=== PATIENT | female | born 2000 | race Caucasian/White ===

== ENCOUNTER 2020-10-29 14:56 | Outpatient (REF) | payer OTHER, SELFPAY | END 2020-10-29 14:57 | disposition home or self-care (01) | LOC: HO.LAB 14:56 | PROVIDERS: PCP Internal Medicine; Visit Provider Internal Medicine | DX: Z20.822 Contact with and (suspected) exposure to COVID-19 (principal) | CPT/HCPCS: C9803; U0003; U0005 ==

== ENCOUNTER 2021-02-11 09:50 | Outpatient (REF) | payer OTHER, SELFPAY ==
[2021-02-11 10:18] LABS: COVID-19 Test Negative (Negative)
== END 2021-02-11 09:51 | disposition home or self-care (01) ==
LOC: HO.LAB 09:50
PROVIDERS: PCP Internal Medicine; Visit Provider Internal Medicine
DX: Z20.822 Contact with and (suspected) exposure to COVID-19 (principal)
CPT/HCPCS: 36415; 87635; C9803

== ENCOUNTER 2023-01-11 08:27 | Emergency (ER) | payer SELFPAY ==
--- NOTE | ~2023-01-11 | US_ITS ---
EXAMINATION: US VENOUS ULTRASOUND WITH DOPPLER LOWER EXTREMITY, LEFT CLINICAL INFORMATION: Red/warm left lower extremity COMPARISON: None available. TECHNIQUE: Ultrasound of the deep veins is performed from the hip to the calf with compression sonography and color and pulse Doppler assessment. Spectral analysis with color-flow imaging is performed. FINDINGS: There is normal venous compression and respiratory variation and augmented flow. The visualized common femoral vein, superficial femoral vein, profunda femoral vein, popliteal vein, and the trifurcation region shows no evidence of deep venous thrombosis. There is no significant popliteal fossa cyst. Contralateral common femoral vein is patent. If the patient's symptoms persist, followup ultrasound in 5 days 7 days might be of value to exclude proximal propagation from a non-visualized calf vein. US/US venous duplex LE IMPRESSION: No DVT demonstrated in the left lower extremity.
[2023-01-11 08:30] VITALS: BP 132/87; PULSE 110; RESP 18; TEMP 36.7; O2SAT 98; BMI 31.5
--- NOTE | 2023-01-11 08:34 | ED.GENADULT ---
HPI - General Adult General Chief complaint: General Medical Stated complaint: L leg pain Time Seen by Provider: 01/11/23 08:32 Source: patient Mode of arrival: ambulatory Limitations: no limitations History of Present Illness HPI narrative: 22-year-old female with no significant pmhx presents to the ED today with a complaint of a warm sensation to her left lower extremity that extends from her groin to her left lower leg x2 days. States that it this woke her from her sleep 2 days ago. Her legs felt warm to the touch. Since this time this sensation has been intermittent and will occasionally feel like an internal sensation. She has asked her coworkers to feel her leg and they have not been able to appreciate any warmth. Additionally she endorses intermittent numbness to her left foot x2 days. Ambulating without difficulty. Denies pain/redness to the lower extremity. Denies injury or trauma. Has been on Depakote for 10 years now. No recent long distance travel. Denies fever, chills, headache, dizziness, neck pain, chest pain, shortness of breath, dyspnea, LE pain/swelling, tingling or weakness to the lower extremities, bowel or bladder retention or incontinence, saddle anesthesia. No history of diabetes or neuropathy. She is currently on antibiotics for strep throat x1 week. Denies throat pain Related Data Previous Rx's Medication Instructions Recorded gabapentin 300 mg capsule 300 mg PO BID 3 weeks #42 caps 01/11/23 Allergies Allergy/AdvReac Type Severity Reaction Status Date / Time No Known Allergies Allergy Verified 01/11/23 08:33 Review of Systems Review of Systems: Constitutional: No fever, chills, fatigue, night sweats, weight changes ENT/Mouth: No ear pain, hearing loss, nasal congestion, sinus pain, rhinorrhea, sore throat Eyes: No eye pain, swelling, redness, vision changes, discharge Cardio: No chest pain, palpitations, HUFF, orthopnea, peripheral edema Pulm: No SOB, cough, sputum, wheezing, dyspnea, hemoptysis GI: No nausea, vomiting, hematemesis, abdominal pain, diarrhea, constipation, hematochezia, melena : No irregular bleeding, dysuria, frequency, urgency, hesitancy, hematuria, flank pain, urinary flow changes, urinary incontinence or retention MSK: No back pain, neck pain, joint pain, myalgias Skin: No lesions, rashes Neuro: No weakness, + numbness to left foot, No paresthesias, LOC, dizziness, headache All other systems reviewed and are negative. [facility] [place] Past Medical History Attestation statement: The following information was validated with the patient. Source: old records reviewed and nursing notes reviewed Social History Social History Advance Directives: No Physical Exam ED Vital Signs: Vital Signs - 24 hr 01/11/23 08:30 01/11/23 08:48 01/11/23 10:38 Temperature 98.0 F 98.6 F 98.2 F Pulse Rate 110 H 105 H 81 Respiratory Rate 18 20 20 Blood Pressure 132/87 130/80 118/66 Pulse Oximetry 98 97 96 Oxygen Delivery Method Room Air Room Air Room Air BMI result Body Mass Index 31.5 Vital signs notable for tachycardia Const General: cooperative, comfortable, no acute distress, alert and awake Orientation/consciousness: patient oriented x3 Limitations: no limitations HENMT Other: + posterior oropharynx without erythema or tonsillar exudates. Uvula is midline. Patient is controlling secretions and speaking in complete sentences. Head: Yes normal to inspection Ears: hearing grossly normal bilaterally General nose exam: Normal external nose present Eyes General: appearance normal, both eyes and all related structures Conjunctivae: conjunctivae normal Sclerae: sclerae normal Pupils: Equal, round and reactive pupils present EOM: EOMs intact bilaterally Neck Neck: Yes normal visual inspection, Yes no lymphadenopathy and Yes no meningeal signs Thyroid: Thyroid normal Resp Effort & Inspection: normal respiratory effort and able to speak in complete sentences Auscultation: clear to auscultation bilaterally Cardio Rate: regular rate Rhythm: regular rhythm Peripheral pulses: radial pulses present, posterior tibial pulses present and dorsalis pedis present Back/Spine/Pelvis Other: + no midline spinous tenderness. No paraspinal muscle tenderness to palpation. No step-off deformity. Skin General skin exam: no rashes or lesions noted Neuro Other: Strength 5/5 intact throughout.?No saddle anesthesia.?Sensation intact to light touch.?NV intact distally.? General: patient oriented x3, gait normal, moves all extremities and no meningeal signs Cranial nerves: Yes CN's II-XII intact bilaterally and Yes Equal, round and reactive pupils present Extrem Other: + The left lower extremity is without erythema or edema, not tender to palpation, ROM intact, strength 5/5, sensation is intact to light touch, Negative Homans sign bilaterally. General: Yes normal to inspection, Yes full ROM and Yes no clubbing, cyanosis or edema Course Course Course Narrative: 0950-- CBC without leukocytosis or anemia, no thrombocytosis or thrombocytopenia. Random glucose is within normal limits > unlikely diabetic induced neuropathy. Beta hCG negative. COVID negative. D-dimer is negative. Coagulation is within normal limits. Venous Doppler of left lower extremity does not demonstrate DVT > VTE is unlikely. TSH wnl. Discussed workup results with patient and family member. There is no clear etiology to patient's symptoms. I will send her home with a trial for gabapentin for possible neuropathy. I will provide her with neurology referral for further work up. Discussed return precautions. All questions answered at this time. Patient agreeable with disposition and stable for discharge. Medical Decision Making Medical Decision Making [facility] Narrative: 22-year-old female with no significant past medical history presents to the ED today with a complaint of a warm sensation to her left lower extremity that extends from her groin to her left lower leg x2 days. VS initially notable for tachycardia, now normalized. Patient non toxic appearing, in NAD. No rashes. The left lower extremity is without erythema or edema, not tender to palpation, ROM intact, strength 5/5, sensation, intact to light touch, Negative Homans sign bilaterally. Exam nonfocal. Clinical concern for DVT, neuropathy, neuralgia, electrolyte abnormality, vitamin deficiency, hyperthyroid. Unlikely compartment syndrome, fracture/dislocation, arterial occlusion. Unlikely CVA/TIA. Plan at this time is basic labs, coags, d dimer, LLE venous duplex, and re-eval. Differential Diagnosis Differential Diagnoses: The differential diagnosis associated with the presentation includes As above. Admission/Observation Not indicated. Lab Data [facility] Lab Attestation statement: I reviewed the patient's lab results. As above. 01/11/23 08:55 01/11/23 08:55 Labs: Lab Results 01/11/23 Range/Units 08:55 WBC 7.1 (4.8-10.8) X10*3/uL RBC 4.93 (4.20-5.50) X10*6/uL Hgb 14.2 (12.0-16.0) g/dl Hct 42.8 (37.0-47.0) % MCV 86.8 (80.0-98.0) fL MCH 28.8 (27.0-33.0) pg MCHC 33.2 (31.0-35.0) g/dl RDW 11.9 (11.0-16.0) % Plt Count 354 (160-400) X10*3/uL MPV 9.3 L (9.4-12.3) fL Immature Gran % (Auto) 0.8 H (0.0-0.4) % Neut % (Auto) 51.5 (45-73) % Lymph % (Auto) 38.1 (20-40) % Otero % (Auto) 6.5 (2-11) % Eos % (Auto) 2.3 (0-4) % Baso % (Auto) 0.8 (0-2) % Lymph # (Auto) 2.7 (1.2-4.9) X10*3/uL Otero # (Auto) 0.5 (0.1-1.2) X10*3/uL Eos # (Auto) 0.2 (0.0-0.4) X10*3/uL Baso # (Auto) 0.1 (0.0-0.2) X10*3/uL Abs Immat Gran (auto) 0.06 H (0.00-0.03) X10*3/uL Absolute Neuts (auto) 3.6 (2.0-8.3) x10*3/uL Absolute Nucleated RBC 0.000 (0.0-0.012) X10*3/uL Nucleated RBC % (auto) 0.0 (0.0-0.2) /100WBC PT 11.8 (11.1-13.3) SEC INR 1.0 (0.9-1.1) D-Dimer High Sensitivty < 150 NG/ML Sodium 141 (135-145) mmol/L Potassium 4.1 (3.3-5.1) mmol/L Chloride 109 H (96-108) mmol/L Carbon Dioxide 23 (22-29) mmol/L Anion Gap 13 (12-20) BUN 9 (9-16) mg/dL Creatinine 0.81 (0.5-1.4) mg/dL Estim Creat Clear Calc 119.9 Estimated GFR > 60 Random Glucose 108 (60-115) mg/dL Calcium 10.3 H (8.4-10.2) mg/dL Magnesium 2.0 (1.6-2.6) mg/dL Total Bilirubin 0.3 (0.0-1.0) mg/dL AST 18 (5-31) U/L ALT 19 (0-31) U/L Alkaline Phosphatase 69 (39-117) U/L Total Protein 7.8 (6.5-8.0) g/dL Albumin 4.7 (3.5-5.0) g/dL Lipase 17 (8-78) U/L TSH 1.12 (0.32-4.0) uIU/mL Beta HCG, Quant < 2 mIU/mL COVID-19 ([facility]) Negative (Negative) COVID-19 Clin Com See Note Independent Interpretation I performed an independent interpretation of an: Ultrasound Interpretation: Ultrasound of left lower extremity without DVT, agree with radiologist's interpretation. Radiology Impression Discussion of test interpretation with radiology: I have reviewed the radiologist's reading. Radiologist Impression: US venous duplex LE LT IMPRESSION: No DVT demonstrated in the left lower extremity. External Record Review External record reviewed: Inpatient record Critical Care Time Critical Care Time Critical Care Time: No Discharge Plan Discharge Clinical Impression: Neuropathy Patient Disposition: Home, Self-Care Instructions: Peripheral Neuropathy (ED) Additional Instructions: Your labs today were reassuring. The ultrasound of your left leg did not demonstrate any clot. Your symptoms may be consistent with a neuropathy. You have been provided with a referral to a neurologist. Please call them to follow-up. They will not call you. Gabapentin is a medication that can help with nerve pain. A three-week course of this has been sent to your pharmacy. You will take this twice daily. Follow-up with your primary care physician as needed. If her symptoms persist or worsen, please return to the emergency department. In the case of an emergency call 911. Prescriptions: New gabapentin 300 mg capsule 300 mg PO BID 21 Days Qty: 42 0RF Referrals: [facility] [place] Neuro/Sleep [Provider Group] - 5 days Rachel Hidalgo MD [Primary Care Provider] - Stand Alone Forms: Work/School Release Interventions: ED Discharge Assessment Last Done: 01/11/23 10:59 Discharge Date/Time: 01/11/23 11:00
--- OUTSIDE RECORDS SUMMARY | 2023-01-11 08:47 | XMS_ITS | Continuity of Care Document ---
Author Name Unknown Organization [facility] e Medicine Address Unknown Care Team Providers Care Peoplesoft Developer Name Role Phone Barak Godoy NP Primary Care Physician [place] [facility] [place] [facility] Reproductive Medicine Attending Physician: Hank Marrero Admitting Physician: Hank Marrero Referring Physician: Admtr, Hank Allergies, Adverse Reactions, Alerts No Known Medication Allergies Immunizations Given and Recorded Vaccine Date Status Refusal Reason Poliovirus Vaccine, Inactivated 1 06/04/18 Recorde d Poliovirus Vaccine, Inactivated 05/28/02 Recorded Poliovirus Vaccine, Inactivated 11/12/99 Recorded Human Papillomavirus Vaccine 05/13/15 Recorded Human Papillomavirus Vaccine 2 08/15/14 Recorded Human Papillomavirus Vaccine 3 07/15/14 Recorded tetanus-diphtheria toxoids (Td) 05/13/15 Recorded tetanus-diphtheria toxoids (Td) 4 06/21/10 Recorde d Meningococcal Conjugate Vaccine 5 08/15/14 Recorde d Meningococcal Conjugate Vaccine 6 06/21/10 Recorde d Hepatitis A Pediatric Vaccine 7 07/15/14 Recorded Hepatitis A Pediatric Vaccine 8 12/16/11 Recorded Varicella Virus Vaccine 9 09/03/08 Recorded Varicella Virus Vaccine 10 04/19/99 Recorded diphtheria/tetanus/pertussis, acel(DTaP) 11 05/28/02 Recorded diphtheria/tetanus/pertussis, acel(DTaP) 11/12/99 Recorded diphtheria/tetanus/pertussis, acel(DTaP) 98 Recorded Measles/Mumps/Rubella Virus Vaccine 12 05/28/02 Re corded Measles/Mumps/Rubella Virus Vaccine 13 07/16/99 Re corded Haemophilus B conjugate (HbOC) vaccine 14 07/16/99 Recorded Haemophilus B conjugate (HbOC) vaccine 15 98 Recorded Haemophilus B conjugate (HbOC) vaccine 16 98 Recorded Haemophilus B conjugate (HbOC) vaccine 17 98 Recorded hepatitis B pediatric vaccine 18 01/11/99 Recorded hepatitis B pediatric vaccine 19 98 Recorded hepatitis B pediatric vaccine 20 98 Recorded 1Location History: Pediatric Immunization Record 2Location History: Pediatric Immunization Record 3Location History: Pediatric Immunization Record 4Location History: Pediatric Immunization Record 5Location History: Pediatric Immunization Record 6Location History: Pediatric Immunization Record 7Location History: Pediatric Immunization Record 8Location History: Pediatric Immunization Record 9Location History: Pediatric Immunization Record 10Location History: Pediatric Immunization Record 11Location History: Pediatric Immunization Record 12Location History: Pediatric Immunization Record 13Location History: Pediatric Immunization Record 14Location History: Pediatric Immunization Record 15Location History: Pediatric Immunization Record 16Location History: Pediatric Immunization Record 17Location History: Pediatric Immunization Record 18Location History: Pediatric Immunization Record 19Location History: Pediatric Immunization Record 20Location History: Pediatric Immunization Record Medications Depo-Provera Contraceptive 150 mg/mL intramuscular suspension 1 mL = 150 mg, Intramuscular, Every 3 months, # 1 mL, 0 Refills, Maintenance, 04/17/18 9:02:37 EST,Suspension Start Date: 04/17/18 Status: Ordered Social History Social History Type Response Smoking Status Never (less than 100 in lifetime) entered on: 04/17/18 Sex
[2023-01-11 08:48] VITALS: BP 130/80; PULSE 105; RESP 20; TEMP 37; O2SAT 97
--- OUTSIDE RECORDS SUMMARY | 2023-01-11 08:48 | XMS_ITS | Continuity of Care Document ---
Author Name Unknown Organization [facility] e Medicine Address Unknown Care Team Providers Care Compression Molding Machine Tender Name Role Phone Walt MEI, Barak Leal Primary Care Physician [phone] [place] [facility] [place]/21 [facility] Reproductive Medicine Attending Physician: Luna Calhoun MD Referring Physician: Daya Stein MD Allergies, Adverse Reactions, Alerts No Known Medication [...] 9:02:37 EST,Suspension Start Date: 04/17/18 Status: Ordered Vital Signs Most recent to oldest [Reference Range]: 1 Height 168 cm (05/07/21 8:42 AM) Social History Social History Type Response Smoking Status Never (less than 100 in lifetime) entered on: 04/17/18 Sex
--- OUTSIDE RECORDS SUMMARY | 2023-01-11 08:48 | XMS_ITS | Continuity of Care Document ---
Author Name Unknown Organization [facility] e Medicine Address Unknown Care Team Providers Care Activities Therapist Name Role Phone Barak Godoy NP Primary Care Physician En[place] [facility] [place] Date(s): 05/31/21 - 06/30/21 [facility] Reproductive Medicine Attending Physician: Hank Marrero Admitting Physician: Hank Marrero Referring Physician: AdmtrHank Allergies, Adverse Reactions, Alerts No Known Medication [...]
--- OUTSIDE RECORDS SUMMARY | 2023-01-11 08:48 | XMS_ITS | Continuity of Care Document ---
Author Name Unknown Organization [facility] Medicine Address Unknown Care Team Providers Care Exceptional Children'S Teacher Name Role Phone Barak Godoy NP Primary Care Physician Encounter [facility] [place] Date(s): 05/17/21 - 06/30/21 [facility] Rep[facility]ductive [facility] Attending Physician: Not on Staff, Attending MD Referring Physician: Luna Calhoun MD Allergies, Adverse Reactions, Alerts No Known [...] Recorded Haemophilus B conjugate (HbOC) vaccine 15 8/2/99 Recorded Haemophilus B conjugate (HbOC) vaccine 16 [...]
--- OUTSIDE RECORDS SUMMARY | 2023-01-11 08:48 | XMS_ITS | Continuity of Care Document ---
Author Name Unknown Organization [facility] e Medicine Address Unknown Care Team Providers Care Digital Forensic Examiner Name Role Phone Barak Godoy NP Primary Care Physician [place] [facility] [place] 07[place]23/21 [facility] Reproductive Medicine Attending Physician: Luna Calhoun MD Referring Physician: Not on Staff, Referring MD Allergies, Adverse Reactions, Alerts No Known [...]
[2023-01-11 09:06] LABS: MANUAL DIFF FLAG NO
[2023-01-11 09:08] LABS: Basophils Absolute Auto 0.1 X10*3/uL (0.0-0.2); Basophils Percent Auto 0.8 % (0-2); Eosinophils Absolute Auto 0.2 X10*3/uL (0.0-0.4); Eosinophils Percent Auto 2.3 % (0-4); Hematocrit 42.8 % (37.0-47.0); Hemoglobin 14.2 g/dl (12.0-16.0); Imm Gran Abs Auto 0.06 X10*3/uL (0.00-0.03); Imm Gran Pct Auto 0.8 % (0.0-0.4); Lymphocytes Absolute Auto 2.7 X10*3/uL (1.2-4.9); Lymphocytes Percent Auto 38.1 % (20-40); Mean Corpuscular HGB Conc 33.2 g/dl (31.0-35.0); Mean Corpuscular Hemoglobin 28.8 pg (27.0-33.0); Mean Corpuscular Volume 86.8 fL (80.0-98.0); Mean Platelet Volume 9.3 fL (9.4-12.3); Monocytes Absolute Auto 0.5 X10*3/uL (0.1-1.2); Monocytes Percent Auto 6.5 % (2-11); Neutrophils Absolute Auto 3.6 x10*3/uL (2.0-8.3); Neutrophils Percent Auto 51.5 % (45-73); Platelet Count 354 X10*3/uL (160-400); Red Blood Count 4.93 X10*6/uL (4.20-5.50); Red Cell Distribution Width 11.9 % (11.0-16.0); White Blood Count 7.1 X10*3/uL (4.8-10.8)
[2023-01-11 09:15] LABS: Prothrombin Time 11.8 SEC (11.1-13.3)
[2023-01-11 09:20] LABS: D Dimer High Sensitivity < 150 NG/ML
[2023-01-11 09:22] LABS: COVID-19 Test Negative (Negative); IDNOW Serial# BCCEAD1C
[2023-01-11 09:31] LABS: Alanine Aminotransferase 19 U/L (0-31); Albumin Level 4.7 g/dL (3.5-5.0); Alkaline Phosphatase 69 U/L (39-117); Anion Gap 13 (12-20); Aspartate Amino Transferase 18 U/L (5-31); Bilirubin Total 0.3 mg/dL (0.0-1.0); Blood Urea Nitrogen 9 mg/dL (9-16); Calcium 10.3 mg/dL (8.4-10.2); Carbon Dioxide 23 mmol/L (22-29); Chloride 109 mmol/L (96-108); Creatinine Clr Calc Pharmacy 119.9; Estimated Glomerular Filt Rate > 60; Glucose Random 108 mg/dL (60-115); Lipase 17 U/L (8-78); Potassium 4.1 mmol/L (3.3-5.1); Sodium 141 mmol/L (135-145); Total Protein 7.8 g/dL (6.5-8.0)
[2023-01-11 09:36] LABS: HCG Quantitative < 2 mIU/mL
[2023-01-11 10:34] LABS: Thyroid Stimulating Hormone 1.12 uIU/mL (0.32-4.0)
[2023-01-11 10:38] VITALS: BP 118/66; PULSE 81; RESP 20; TEMP 36.8; O2SAT 96
== END 2023-01-11 11:00 | disposition home or self-care (01) ==
PROVIDERS: Physician Assistant Medical; Emergency Provider Emergency Medicine Emergency Medical Services; PCP Family Medicine
DX: G62.9 Polyneuropathy, unspecified (principal); M79.605 Pain in left leg; R00.0 Tachycardia, unspecified; R20.0 Anesthesia of skin; Z11.52 Encounter for screening for COVID-19
CPT/HCPCS: 80053; 83690; 83735; 84443; 84702; 85025; 85379; 85610; 87635; 93971; 99283; 99284